=== PATIENT | female | born 1985 ===

== ENCOUNTER 2020-06-25 16:12 | Emergency (ER) ==
--- NOTE | 2020-06-25 18:21 | EKG REPORT ---
SEVERITY:- BORDERLINE ECG - SINUS RHYTHM LVH : Confirmed by: Patrick Lewis MD 25-Jun-2020 18:20:41
== END 2020-06-25 19:55 | disposition left against medical advice (07) ==
LOC: ER 16:12
DX: Z53.21 Procedure and treatment not carried out due to patient leaving prior to being seen by health care provider (principal)
CPT/HCPCS: 93005; 93010